=== PATIENT | female | born 1975 | race American Indian/Alaskan Native ===

== ENCOUNTER 2017-07-10 07:15 | Day surgery (SDC) | payer MEDICAID ==
--- NOTE | 2017-07-10 09:23 | Anesthesia Consultation ---
Anesthesia Consult and Med Hx Date of service: 07/10/17 - Airway Anesthetic Teeth Evaluation: Good ROM Head & Neck: Adequate Mental/Hyoid Distance: Adequate Mallampati Class: Class II Intubation Access Assessment: Good - Pulmonary Exam CTA: Yes - Cardiac Exam Cardiac Exam: RRR - Pulmonary Hx Smoking: No Hx Respiratory Symptoms: No COPD: No - Cardiovascular System Hx Hypertension: No Hx Heart Attack/AMI: No Hx Pacemaker: No Hx Heart Murmur: No - Central Nervous System Hx Psychiatric Problems: No - Gastrointestinal Hx Gastroesophageal Reflux Disease: No - Endocrine Hx Renal Disease: No Hx Hypothyroidism: No - Other Systems Hx Alcohol Use: No Hx Substance Use: No Hx Cancer: No
[2017-07-10] MEDS ORDERED: ZOFRAN IV PRN (09:24)
[2017-07-10] MEDS ORDERED: DILAUDID IV PRN (09:24)
--- NOTE | 2017-07-10 09:24 | Anesthesia Day of Surgery ---
Anesthesia Day of Surgery - Day of Surgery Patient Examined: Yes Patient H&P Reviewed: Yes Patient is NPO: Yes
[2017-07-10] MEDS ORDERED: NACL 0.9% 1000 ML 1,000 ML IV SCH (10:00)
[2017-07-10] MEDS ORDERED: PEPCID IV NR (10:00)
[2017-07-10] MEDS ORDERED: ANCEF/STERILE WATER 2 GM/20 ML IV NR (11:00)
[2017-07-10] MEDS ORDERED: SUBLIMAZE ONE ×2 (12:17→13:50)
[2017-07-10] MEDS ORDERED: DIPRIVAN 10 MG/ML IV ONE (12:17)
[2017-07-10] MEDS ORDERED: XYLOCAINE MPF 2% ONE (14:54)
[2017-07-10] MEDS ORDERED: NACL 0.9% 1000 ML 1,000 ML ONE (14:54)
[2017-07-10] MEDS ORDERED: QUELICIN ONE (14:54)
[2017-07-10] MEDS ORDERED: LACTATED RINGERS 1,000 ML ONE (14:54)
[2017-07-10] MEDS ORDERED: NEOSTIGMINE ONE (14:54)
[2017-07-10] MEDS ORDERED: ROBINUL ONE ×2 (14:54→15:27)
[2017-07-10] MEDS ORDERED: NEO SYNEPHRINE/NS Syringe(OR USE) IV ONE (14:54)
[2017-07-10] MEDS ORDERED: ZOFRAN ONE (14:54)
[2017-07-10] MEDS ORDERED: ZEMURON IV ONE (14:54)
[2017-07-10] MEDS ORDERED: DECADRON ONE (14:54)
--- NOTE | 2017-07-10 16:13 | Post Anesthesia Evaluation ---
- Post Anesthesia Evaluation Patient Participated: Yes Airway Patent: Yes Stable Respiratory Function: Yes Nausea/Vomiting: No Temp > 96.8F: Yes Pain Manageable: Yes Adequeate Hydration: Yes Anesthesia Complications: No Block Receding Appropriately: Not Applicable Patient on Ventilator: No
[2017-07-10] MEDS ORDERED: DILAUDID ONE (16:17)
[2017-07-10] MEDS: DILAUDID IV PRN ×3 (16:20→16:45)
--- NOTE | 2017-07-10 18:23 | Operative Report ---
PREOPERATIVE DIAGNOSIS: Macromastia. POSTOPERATIVE DIAGNOSIS: Macromastia. PROCEDURE: Bilateral reduction mammoplasty. SURGEON: Philip Gu MD HAT FORMER: Manoj Paz CSA FINDINGS: 1700 gm removed from the right breast, 1160 gm removed from the left breast. DESCRIPTION OF PROCEDURE: The patient was brought into the operating room, placed on the table in supine position. Following administration of general anesthesia, bilateral breasts were prepped with Betadine solution and draped in the usual sterile manner. A #10 blade scalpel was used to make a circumareolar skin incision followed by de-epithelization of inferior dermal pedicle. Modified Munroe pattern skin markings were incised with scalpel, deepened through subcutaneous fat and breast tissue using electrocautery. Skin flaps were raised in standard manner as was fashioning of an inferior central mound pedicle. Breast tissue was resected and sent to pathology as a specimen. Hemostasis was controlled using electrocautery. Breast sutured using interrupted and running subcuticular 2-0 Monocryl sutures. Mastisol, Steri-Strips, and sterile dressings applied. The patient tolerated the procedure well and returned to recovery room in stable condition. JOB# [id number] FTW/NTS
[2017-07-10 19:51] VITALS: BP 121/65
== END 2017-07-10 19:35 | disposition home or self-care (01) ==
LOC: OR 07:15 → EDBD 15:00 → OR 19:35
PROVIDERS: ATTEND Plastic Surgery
DX: D24.1 Benign neoplasm of right breast (principal); N62 Hypertrophy of breast; N64.89 Other specified disorders of breast; E11.9 Type 2 diabetes mellitus without complications; Z91.048 Other nonmedicinal substance allergy status; Z98.890 Other specified postprocedural states; Z90.49 Acquired absence of other specified parts of digestive tract; Z88.2 Allergy status to sulfonamides
CPT/HCPCS: 19366; 81025; 82962; 88305; J0330; J1100; J1170; J2370; J2405; J2704; J2710; J3010; J7030; J7120; J1815